=== PATIENT | male | born 1960 | race Caucasian/White ===

== ENCOUNTER 2019-01-28 14:58 | Emergency (ER) | payer BC ==
[~2019-01-28] VITALS: Ht 172.7 cm; Wt 81.0 kg
[~2019-01-28 14:58] MED LIST: AMLO5TAB4 PO; ASPI-817 PO; ATOR10TA65 PO; LISI-313 PO
[2019-01-28 15:19] VITALS: Ht 172.7 cm; Wt 81.0 kg
[2019-01-28] MEDS ORDERED: ASPIRIN 81 MG TAB PO STA (17:33)
[2019-01-28 19:56] VITALS: BP 118/77; PULSE 61; RESP 16
== END 2019-01-28 19:56 | disposition home or self-care (01) ==
LOC: E/R 14:58
DX: R20.2 Paresthesia of skin (principal); R07.89 Other chest pain; R40.2142 Coma scale, eyes open, spontaneous, at arrival to emergency department; R40.2252 Coma scale, best verbal response, oriented, at arrival to emergency department; R40.2362 Coma scale, best motor response, obeys commands, at arrival to emergency department; I10 Essential (primary) hypertension; Z79.82 Long term (current) use of aspirin
CPT/HCPCS: 36415; 71045; 80048; 84484; 85025; 93005; Z7502; Z7610